=== PATIENT | female | born 1990 | race African-American/Black ===

== ENCOUNTER → 2018-07-11 | Outpatient (CLI) | payer BC ==
--- NOTE | 2018-07-11 16:39 | KCIC ---
EXAM: Abdomen, single view. HISTORY: Microscopic hematuria. COMPARISON: None. FINDINGS: Frontal views of the abdomen and pelvis are obtained. There is gas and stool within the colon. No abnormally dilated loop of bowel seen. There is no calcification overlying the renal shadows or expected courses of the ureter. There are right greater than left pelvic phleboliths. IMPRESSION: Nonobstructive bowel gas pattern. No convincing nephroureterolithiasis. Electronically signed by: Adri Morales MD (07/11/2018 4:35 PM) [place] [id number]
== END | disposition home or self-care (01) ==
LOC: KCIC 15:23
PROVIDERS: ATTEND Obstetrics & Gynecology
DX: R31.29 Other microscopic hematuria (principal); I87.8 Other specified disorders of veins
CPT/HCPCS: 74018

== ENCOUNTER → 2018-11-02 | Outpatient (CLI) | payer BC ==
--- NOTE | 2018-11-02 13:19 | KCIC ---
EXAM: Transabdominal and transvaginal pelvic sonogram. HISTORY: Postcoital bleeding and pelvic pain. TECHNIQUE: Transabdominal and transvaginal sonographic imaging of the pelvis was performed. COMPARISON: None. FINDINGS: The uterus measures 8.9 x 4.2 x 4.0 cm. The uterus is slightly retroflexed. The endometrial stripe measures 4 mm in thickness. The ovaries are normal in size and demonstrate normal blood flow. There is a dominant left ovarian follicle/follicular cyst measuring 2.2 cm. There is a 9 mm nabothian cyst. There is trace pelvic free fluid. IMPRESSION: 1. 2.2 cm dominant left ovarian follicle/follicular cyst. 2. Small nabothian cyst. 3. Trace pelvic free fluid, within physiologic limits for a premenopausal female Electronically signed by: Adri Morales MD (11/02/2018 1:16 PM) [id number]
== END | disposition home or self-care (01) ==
LOC: KCIC US 12:08
PROVIDERS: ATTEND Nurse Practitioner Gerontology
DX: N88.8 Other specified noninflammatory disorders of cervix uteri (principal)
CPT/HCPCS: 76830; 76856